=== PATIENT | male | born 1995 | race African-American/Black ===

== ENCOUNTER 2019-06-26 04:46 | Emergency (ER) | payer OTHER ==
[~2019-06-26] VITALS: Ht 165.1 cm; Wt 65.8 kg
[2019-06-26 04:49] VITALS: BP 137/89
[2019-06-26] MEDS ORDERED: ALEVE220 MG PO (05:01)
[2019-06-26] MEDS ORDERED: ACCUNEB SO1.25 MG/1 (05:03)
== END 2019-06-26 05:45 | disposition home or self-care (01) ==
LOC: ER 04:46
DX: M54.6 Pain in thoracic spine (principal); Z98.890 Other specified postprocedural states

== ENCOUNTER 2019-11-02 19:13 | Emergency (ER) | payer OTHER ==
[~2019-11-02] VITALS: Ht 165.1 cm; Wt 68.0 kg
[~2019-11-02 19:13] MED LIST: ACCUNEB SO1.25 MG/1; ALEVE220 MG PO
[2019-11-02] MEDS ORDERED: NAPROSYN500 MG PO (22:31)
[2019-11-02] MEDS ORDERED: NORFLEX100 MG PO (22:31)
[2019-11-02 23:00] VITALS: BP 117/69
== END 2019-11-02 23:05 | disposition home or self-care (01) ==
LOC: ER 19:13
DX: S39.012A Strain of muscle, fascia and tendon of lower back, initial encounter (principal); S80.02XA Contusion of left knee, initial encounter; Z98.890 Other specified postprocedural states; V49.88XA Car occupant (driver) (passenger) injured in other specified transport accidents, initial encounter; Y93.89 Activity, other specified; Y92.413 State road as the place of occurrence of the external cause; Y99.9 Unspecified external cause status